=== PATIENT | female | born 1960 | race African-American/Black ===

== ENCOUNTER 2018-06-06 21:07 | Emergency (ER) | payer MEDICARE, OTHER ==
[~2018-06-06] VITALS: Ht 182.9 cm; Wt 121.1 kg
[2018-06-06 21:30] VITALS: BP 124/77
[2018-06-06] MEDS ORDERED: NORCO 5-325 TA1 EACH ORAL (22:03)
[2018-06-06] MEDS ORDERED: SOMA350 MG PO (22:03)
[2018-06-06 22:05] VITALS: BP 124/77
--- NOTE | 2018-06-06 22:45 | Emergency Room Report ---
History of Present Illness General Chief Complaint: Pain Source: Patient Present Illness HPI 58-year-old female presents ED complaining of left calf pain. States that symptoms started approximately one month ago. Patient states she had sudden onset of left knee pain and went to ER for evaluation. Was told that she had significant arthritis in the knee and may need a knee replacement. Patient states since then she is had swelling to the left calf. Patient had a ultrasound done last week of the left calf which show no evidence of blood clot. Patient states that the pain is persisting so she came for evaluation. Pain is sharp, 7 out of 10, nonradiating. Denies chest pain or shortness of breath. Denies fevers or chills. No other aggravating relieving factors. Denies any other associated symptoms Allergies: Coded Allergies: PENICILLINS (Verified Allergy, Unknown, 06/06/18) Patient History Past Medical History: none Past Surgical History: other - L knee surgery 2008 Pertinent Family History: none Social History: Denies: smoking, alcohol use, drug use Now: No Immunizations: UTD Reviewed Nursing Documentation: PMH: Agreed; PSxH: Agreed Review of Systems All Other Systems: negative except mentioned in HPI Physical Exam Vital Signs Date Time Temp Pulse Resp B/P (MAP) Pulse Ox O2 Delivery O2 Flow Rate FiO2 06/06/18 21:10 97.8 85 18 120/77 99 Room Air 97.9 Sp02 EP Interpretation: reviewed, normal General Appearance: no apparent distress, alert, GCS 15, non-toxic, obese Head: normocephalic, atraumatic Eyes: bilateral eye normal inspection, bilateral eye PERRL ENT: hearing grossly normal, normal pharynx, no angioedema, normal voice Neck: full range of motion, supple/symm/no masses Respiratory: chest non-tender, lungs clear, normal breath sounds, speaking full sentences Cardiovascular #1: regular rate, rhythm, no edema Cardiovascular #2: 2+ carotid (R), 2+ carotid (L), 2+ radial (R), 2+ radial (L) , 2+ dorsalis pedis (R), 2+ dorsalis pedis (L) Gastrointestinal: normal bowel sounds, non tender, soft, non-distended, no guarding, no rebound Rectal: deferred Genitourinary: normal inspection, no CVA tenderness Musculoskeletal: back normal, gait/station normal, normal range of motion, non- tender, calf tenderness Neurologic: alert, oriented x3, responsive, motor strength/tone normal, sensory intact, speech normal Psychiatric: judgement/insight normal, memory normal, mood/affect normal, no suicidal/homicidal ideation Reflexes: 3+ bicep (R), 3+ bicep (L), 3+ tricep (R), 3+ tricep (L), 3+ knee (R) , 3+ knee (L) Skin: normal color, no rash, warm/dry, well hydrated Lymphatic: no adenopathy Procedures Splinting Splinting : Consent: Verbal Pre-Made Type: knee immobilizer Pre-Proc Neuro Vasc Exam: normal Post-Proc Neuro Vasc Exam: normal Patient Tolerated: Well Complications: None Medical Decision Making Diagnostic Impression: Primary Impression: Strain of calf muscle Qualified Codes: S86.812A - Strain of other muscle(s) and tendon(s) at lower leg level, left leg, initial encounter ER Course Hospital Course 58-year-old female presents to ED complaining of left calf pain no trauma Differential diagnoses include: dvt, sprain, contusion, bursitis Clinical course Patient placed on stretcher. After initial history, physical exam reveals an middle-aged female in no acute distress. There is noticeable swelling to the left calf. Appears hard. No pitting edema. Patient has had x-rays which show significant DJD to the left knee. Has already had ultrasound which ruled out DVT There is no induration or erythema suggestive of cellulitis. Patient is afebrile. Clinically I am inspecting a calf strain or muscle tear There is no indication for repeat ultrasound or x-rays at this time. I recommend the patient with orthopedics for possible MRI. I offered to provide orthopedic referral but patient states she has an orthopedic surgeon that she will see Placed in knee immobilizer. We will prescribe short course of [place] and soma Diagnosis - strain of calf muscle stable and discharged to home with prescription for [place], Soma. heating pads. Followup with ortho. Return to ED if symptoms recur or worsen Last Vital Signs Date Time Temp Pulse Resp B/P (MAP) Pulse Ox O2 Delivery O2 Flow Rate FiO2 06/06/18 22:05 97.9 80 18 124/77 98 Room Air 97.9 Status: improved Disposition: HOME, SELF-CARE Condition: Stable Scripts Carisoprodol* (SOMA*) 350 Mg Tablet 350 MG PO Q6H, #20 TAB Prov: Lui Terry MD 06/06/18 Hydrocodone Bit/Acetaminophen 5-325* (NORCO 5-325*) 1 Each Tablet 1 TAB ORAL Q6H PRN for For Pain, #20 TAB 0 Refills Prov: Lui Terry MD 06/06/18 Patient Instructions: Medial Head Gastrocnemius Tear With Rehab-Sports[facility] Lui Terry MD Jun 06, 2018 22:45
== END 2018-06-06 22:05 | disposition home or self-care (01) ==
LOC: EMR 21:30
DX: S86.112A Strain of other muscle(s) and tendon(s) of posterior muscle group at lower leg level, left leg, initial encounter (principal); X58.XXXA Exposure to other specified factors, initial encounter; Y92.9 Unspecified place or not applicable; Z88.0 Allergy status to penicillin
CPT/HCPCS: 99283

== ENCOUNTER 2018-08-31 16:15 | Emergency (ER) | payer MEDICARE, OTHER ==
[~2018-08-31] VITALS: Ht 182.9 cm; Wt 120.2 kg
[~2018-08-31 16:15] MED LIST: NORCO 5-325 TA1 EACH ORAL; SOMA350 MG PO
[2018-08-31 16:31] VITALS: BP 123/76
--- NOTE | 2018-08-31 16:54 | Emergency Room Report ---
History of Present Illness General Chief Complaint: Pain Source: Patient Present Illness HPI Patient just with complaints of right wrist carpal tunnel pain along with left knee pain patient reports that she has gone through workers comp injury Has been trying to get set up with her orthopedist and specialty follow-up However she has been unable to get a referral And was told by her consumer attorney to present to the emergency room for pain medicine Patient was last here in June and reports that she's still having difficulty obtaining outpatient follow-up Denies any recent fevers denies any acute trauma Pain to the right wrist is 6 out of 10 Left knee is also similar 6-7 out of 10 worse with movement Allergies: Coded Allergies: PENICILLINS (Verified Allergy, Unknown, 06/06/18) Patient History Past Medical History: see triage record Pertinent Family History: none Now: No Reviewed Nursing Documentation: PMH: Agreed; PSxH: Agreed Nursing Documentation-PMH Past Medical History: No History, Except For Review of Systems All Other Systems: negative except mentioned in HPI Physical Exam Vital Signs Date Time Temp Pulse Resp B/P (MAP) Pulse Ox O2 Delivery O2 Flow Rate FiO2 08/31/18 16:31 97.7 85 20 123/76 97 Room Air Sp02 EP Interpretation: reviewed, normal General Appearance: well appearing, no apparent distress Head: normocephalic, atraumatic Eyes: bilateral eye PERRL, bilateral eye EOMI ENT: hearing grossly normal, normal pharynx Neck: full range of motion Musculoskeletal: other - Patient has irritation to the right wrist on the palmar aspect, increased discomfort with trying to extend the wrist, mild inflammation is also noted. Left knee shows arthritic changes no obvious edema or erythema, range of motion is intact passively Neurologic: alert, oriented x3 Skin: normal color, no rash Lymphatic: no adenopathy Medical Decision Making Diagnostic Impression: Primary Impression: Carpal tunnel syndrome Additional Impression: Arthralgia ER Course Patient was provided with pain medication here Reports that Toradol has worked for her in the past Patient continues to be in the process of obtaining appropriate follow-up I did discuss with her regarding safe pain medication prescribing campaign and [facility]. Last prescription was from ER physician here, Patient understands the need for appropriate follow-up, however she has frustration regarding being able to set up physician appointment and consultation And will continue to attempt outpatient care My suspicion for any obvious joint infection, is low, suspicion for acute fracture also low and patient is appropriate for close follow-up Last Vital Signs Date Time Temp Pulse Resp B/P (MAP) Pulse Ox O2 Delivery O2 Flow Rate FiO2 08/31/18 16:31 97.7 85 20 123/76 97 Room Air Status: improved Disposition: HOME, SELF-CARE Condition: Improved Scripts Acetaminophen With Codeine (T#3) (TYLENOL #3 TAB*) Y Tab 1 TAB ORAL Q8H PRN for For Pain, #9 TAB Prov: Ej Lares DO 08/31/18 Additional Instructions: Patient is provided with the discharge instructions notified to follow up with primary doctor in the next 2-3 days otherwise return to the er with any worsening symptoms. Please note that this report is being documented using [employer] technology. This can lead to erroneous entry secondary to incorrect interpretation by the dictating instrument. Ej Lares DO Aug 31, 2018 16:54
[2018-08-31] MEDS ORDERED: ACETAMINOPHEN-1 EAC1 ORAL (16:56)
[2018-08-31] MEDS ORDERED: Ketorolac 60mg Inj IM ONE (17:00)
[2018-08-31 17:05] VITALS: BP 123/76
== END 2018-08-31 17:05 | disposition home or self-care (01) ==
LOC: EMR 17:03
DX: G56.01 Carpal tunnel syndrome, right upper limb (principal); M25.562 Pain in left knee; Z88.0 Allergy status to penicillin
CPT/HCPCS: 96372; 99283